=== PATIENT | female | born 1990 | race Caucasian/White ===

== ENCOUNTER → 2017-12-28 | Outpatient (CLI) | payer BC, OTHER ==
[~2017-12-28] MED LIST: ALPR-475 PO; LAMO100T5 PO; LEVO15TA6 PO; VENL37.52 PO
== END | disposition home or self-care (01) ==
LOC: STAR 08:05
PROVIDERS: ATTEND Orthopaedic Surgery
DX: Z02.9 Encounter for administrative examinations, unspecified (principal)

== ENCOUNTER 2018-01-03 05:16 | Day surgery (SDC) | payer BC, OTHER ==
[2017-12-28 08:32] VITALS: BP 109/76
[~2018-01-03] VITALS: Ht 154.9 cm; Wt 88.5 kg
[2018-01-03] MEDS ORDERED: LACTATED RINGERS 1,000 ML IV SCH (05:58)
[2018-01-03] MEDS ORDERED: LIDOCAINE-MPF 1%, 2ML INFIL ONE (06:00)
[2018-01-03 06:02] VITALS: BP 109/76
[2018-01-03] MEDS ORDERED: LIDOCAINE-MPF 1%, 5ML ONE (06:07)
[2018-01-03 06:13] LABS: HCG UR SG 1.028 (1.003-1.030)
[2018-01-03] MEDS ORDERED: MIDAZOLAM 1 MG/ML, 2ML ONE (06:18)
[2018-01-03] MEDS ORDERED: FENTANYL PF 250 MCG/5ML ONE (06:18)
[2018-01-03] MEDS ORDERED: EPINEPHRINE 1 MG/ML, 1ML ONE (06:21)
[2018-01-03] MEDS ORDERED: BUPIVACAINE/PF 0.5% ONE (06:21)
[2018-01-03] MEDS ORDERED: PROPOFOL 10 MG/ML, 20ML ONE (06:23)
[2018-01-03] MEDS ORDERED: DEXAMETHASONE 4 MG/ML, 1ML ONE ×2 (06:24)
[2018-01-03] MEDS ORDERED: ONDANSETRON 2MG/ML, 2ML ONE (06:24)
[2018-01-03] MEDS ORDERED: WATER-INJECTION,STERILE 10 ML IV ONE (06:29)
[2018-01-03] MEDS ORDERED: CEFAZOLIN 1,000 MG ONE ×2 (06:29)
[2018-01-03] MEDS ORDERED: SCOPOLAMINE PATCH, 1.5MG PATCH.TD72 TD PRN (07:00)
[2018-01-03] MEDS ORDERED: MEPERIDINE/PF 25MG/0.5ML IVPush PRN (07:00)
[2018-01-03] MEDS ORDERED: ONDANSETRON ODT 8 MG PO PRN (07:00)
[2018-01-03] MEDS ORDERED: ACETAMINOPHEN 325 MG TABLET PO PRN (07:00)
[2018-01-03] MEDS ORDERED: ONDANSETRON 2MG/ML, 2ML IV PRN (07:00)
[2018-01-03] MEDS ORDERED: PROMETHAZINE 25 MG/ML, 1ML IV PRN (07:00)
[2018-01-03] MEDS ORDERED: FENTANYL PF 100 MCG/2ML IV PRN (07:00)
[2018-01-03] MEDS ORDERED: PROMETHAZINE 25 MG SUPP PR PRN (07:00)
[2018-01-03] MEDS ORDERED: MORPHINE SULFATE 4 MG/ML, 1ML IVPush PRN (07:00)
[2018-01-03] MEDS ORDERED: PROMETHAZINE 12.5 MG SUPP PR PRN (07:00)
[2018-01-03] MEDS ORDERED: HYDROmorphone 1 MG/ML, 1ML IV PRN (07:00)
[2018-01-03] MEDS ORDERED: KETOROLAC 30 MG/1 ML ONE (07:37)
[2018-01-03] MEDS ORDERED: OXYcodone 5 MG/5 ML ORAL.SOL UDC ONE ×2 (08:08→08:58)
[2018-01-03] MEDS ORDERED: ACETAMINOPHEN 650 MG/20.3 ML UDC ONE (08:08)
[2018-01-03] MEDS ORDERED: MEPERIDINE/PF 50 MG/ML ONE (08:09)
[2018-01-03] MEDS: OXYcodone 5 MG/5 ML ORAL.SOL UDC PO PRN ×2 (08:14→08:59)
[2018-01-03] MEDS ORDERED: morphine SULFATE 10 MG/ML, 1ML IVPush PRN (09:30)
[2018-01-03] MEDS ORDERED: morphine SULFATE 10 MG/ML, 1ML ONE (09:45)
== END 2018-01-03 11:30 | disposition home or self-care (01) ==
LOC: OUT 05:16
PROVIDERS: ATTEND Orthopaedic Surgery
DX: D16.22 Benign neoplasm of long bones of left lower limb (principal); F32.9 Major depressive disorder, single episode, unspecified; Z88.1 Allergy status to other antibiotic agents; Z88.8 Allergy status to other drugs, medicaments and biological substances; Z79.899 Other long term (current) drug therapy
CPT/HCPCS: 27640; 73590; 76000; 81025; 88304; 88311; J0690; J1100; J1885; J2175; J2250; J2270; J2405; J2704; J3010; J7120; J0171; J3490

== ENCOUNTER 2018-02-03 13:13 | Day surgery (SDC) | payer OTHER ==
[~2018-02-03] VITALS: Ht 154.9 cm; Wt 88.0 kg
[~2018-02-03 13:13] MED LIST changes: +CEFAZOLIN 1,000 MG ONE; +DEXAMETHASONE 4 MG/ML, 1ML ONE; +KETOROLAC 30 MG/1 ML ONE; +ONDANSETRON 2MG/ML, 2ML ONE; +PROPOFOL 10 MG/ML, 20ML ONE
[2018-02-03] MEDS ORDERED: LACTATED RINGERS 1,000 ML IV SCH ×2 (13:40→13:52)
[2018-02-03 13:41] VITALS: BP 109/63
[2018-02-03] MEDS ORDERED: LIDOCAINE 1%-EPI 1:100K, 30ML ONE (15:24)
[2018-02-03] MEDS ORDERED: LIDOCAINE/PF 1%, 30ML ONE (15:24)
[2018-02-03 15:26] LABS: HCG UR SG 1.021 (1.003-1.030)
[2018-02-03] MEDS ORDERED: FENTANYL PF 100 MCG/2ML ONE ×2 (15:26→16:29)
[2018-02-03] MEDS ORDERED: MIDAZOLAM 1 MG/ML, 2ML ONE (15:27)
[2018-02-03] MEDS ORDERED: MEPERIDINE/PF 50 MG/ML ONE ×2 (15:53→16:31)
[2018-02-03] MEDS ORDERED: hydrALAzine 20 MG/ML, 1ML IV PRN (16:00)
[2018-02-03] MEDS ORDERED: HALOPERIDOL 5 MG/ML IV PRN (16:00)
[2018-02-03] MEDS ORDERED: HYDROmorphone 2 MG/ML, 1ML IV PRN (16:00)
[2018-02-03] MEDS ORDERED: OXYcodone 5 MG/5 ML ORAL.SOL UDC PO PRN (16:00)
[2018-02-03] MEDS ORDERED: MEPERIDINE/PF 25MG/0.5ML IVPush PRN (16:00)
[2018-02-03] MEDS ORDERED: LORazepam 2 MG/ML, 1ML IVPush PRN (16:00)
[2018-02-03] MEDS ORDERED: ACETAMINOPHEN 325 MG TABLET PO PRN (16:00)
[2018-02-03] MEDS ORDERED: FENTANYL PF 100 MCG/2ML IV PRN (16:00)
[2018-02-03] MEDS ORDERED: LABETALOL 5MG/ML, 20ML IV PRN (16:00)
[2018-02-03] MEDS ORDERED: ALBUTEROL SULFATE 2.5 MG/3 ML NPPB PRN (16:00)
[2018-02-03] MEDS ORDERED: OXYcodone 5 MG/5 ML ORAL.SOL UDC ONE (16:29)
[2018-02-03] MEDS ORDERED: ACETAMINOPHEN 650 MG/20.3 ML UDC ONE (16:34)
== END 2018-02-03 18:30 | disposition home or self-care (01) ==
LOC: OR 13:13
PROVIDERS: ATTEND Orthopaedic Surgery
DX: T81.31XA Disruption of external operation (surgical) wound, not elsewhere classified, initial encounter (principal); Y83.8 Other surgical procedures as the cause of abnormal reaction of the patient, or of later complication, without mention of misadventure at the time of the procedure; Y92.89 Other specified places as the place of occurrence of the external cause; Z88.1 Allergy status to other antibiotic agents; Z79.899 Other long term (current) drug therapy; Z87.891 Personal history of nicotine dependence; Z72.89 Other problems related to lifestyle
CPT/HCPCS: 13160; 81025; 87070; 87075; 87077; 87147; 87186; 87205; J0690; J1100; J1885; J2175; J2250; J2405; J2704; J3010; J3490; J7120

== ENCOUNTER 2018-03-28 10:58 | Inpatient (IN) | payer OTHER ==
[~2018-03-28] VITALS: Ht 154.9 cm; Wt 88.4 kg
[~2018-03-28 10:58] MED LIST changes: -CEFAZOLIN 1,000 MG ONE; -DEXAMETHASONE 4 MG/ML, 1ML ONE; -KETOROLAC 30 MG/1 ML ONE; -ONDANSETRON 2MG/ML, 2ML ONE; -PROPOFOL 10 MG/ML, 20ML ONE
[2018-03-28] MEDS ORDERED: LACTATED RINGERS 1,000 ML IV SCH (11:33)
[2018-03-28 11:38] VITALS: BP 103/73
[2018-03-28] MEDS ORDERED: CARI6CAP PO (11:38)
[2018-03-28] MEDS ORDERED: PLEASE ENTER HEIGHT AND WEIGHT MC SCH (12:00)
[2018-03-28 12:01] LABS: HCG UR SG 1.024 (1.003-1.030)
[2018-03-28] MEDS ORDERED: FENTANYL PF 100 MCG/2ML ONE (12:53)
[2018-03-28] MEDS ORDERED: MIDAZOLAM 1 MG/ML, 2ML ONE (12:55)
[2018-03-28] MEDS ORDERED: DEXAMETHASONE 4 MG/ML, 1ML ONE (13:22)
[2018-03-28] MEDS ORDERED: PROPOFOL 10 MG/ML, 20ML ONE ×3 (13:22→13:25)
[2018-03-28] MEDS ORDERED: PROPOFOL 100 ML ONE (13:23)
[2018-03-28] MEDS ORDERED: HYDROmorphone 2 MG/ML, 1ML ONE (13:56)
[2018-03-28] MEDS: HYDROmorphone 1 MG/ML, 1ML IV PRN ×3 (13:59→14:30)
[2018-03-28] MEDS ORDERED: OXYcodone 5 MG/5 ML ORAL.SOL UDC PO PRN (14:00)
[2018-03-28] MEDS ORDERED: HYDROcodone/APAP 7.5-325MG/15ML UDC PO PRN (14:00)
[2018-03-28] MEDS ORDERED: MORPHINE SULFATE 4 MG/ML, 1ML IVPush PRN (14:00)
[2018-03-28] MEDS ORDERED: morphine SULFATE 10 MG/ML, 1ML IV PRN (16:00)
[2018-03-28] MEDS ORDERED: LORazepam 2 MG/ML, 1ML IV PRN (16:00)
[2018-03-28] MEDS ORDERED: ACETAMINOPHEN 325 MG TABLET PO PRN (16:00)
[2018-03-28] MEDS ORDERED: BISACODYL 10 MG SUPP PR PRN (16:00)
[2018-03-28] MEDS ORDERED: LORazepam 1MG TABLET PO PRN (16:00)
[2018-03-28] MEDS ORDERED: HYDROcodone/APAP 5/325 TABLET PO PRN (16:00)
[2018-03-28] MEDS ORDERED: MAGNESIUM HYDROXIDE 8%, 30ML UDC PO PRN (16:00)
[2018-03-28] MEDS ORDERED: VANCOMYCIN PER PHARMACY MC PRN (16:00)
[2018-03-28] MEDS ORDERED: PROMETHAZINE 25 MG/ML, 1ML IM PRN (16:00)
[2018-03-28] MEDS ORDERED: SENNA/DOCUSATE TABLET PO PRN (16:00)
[2018-03-28] MEDS ORDERED: ALUMINUM/MAG/SIMETHICONE 30 ML UDC PO PRN (16:00)
[2018-03-28] MEDS ORDERED: PHARMACOKINETIC MONITORING MC PRN (16:30)
[2018-03-28] MEDS: OXYcodone/APAP 5/325MG TABLET PO PRN ×2 (18:10→21:53)
[2018-03-28] MEDS: D5%-LACTATED RINGERS 1,000 ML IV SCH (19:27)
[2018-03-28] MEDS: VANCOMYCIN 1,700 MG in SODIUM CHLORIDE 0.9% 250 ML IV SCH (19:32)
[2018-03-28 20:00] VITALS: BP 113/61
[2018-03-28] MEDS: CEFAZOLIN PMX 1GM/50ML 50 ML IVPB SCH (21:16)
[2018-03-28] MEDS: DOCUSATE 100 MG CAPSULE PO SCH (21:53)
[2018-03-29 00:10] VITALS: BP 97/61
[2018-03-29] MEDS: OXYcodone/APAP 5/325MG TABLET PO PRN ×3 (02:23→12:39)
[2018-03-29] MEDS: D5%-LACTATED RINGERS 1,000 ML IV SCH ×2 (04:30→15:31)
[2018-03-29] MEDS: CEFAZOLIN PMX 1GM/50ML 50 ML IVPB SCH ×3 (05:07→21:44)
[2018-03-29 05:09] LABS: BASOPHILS # (AUTO) 0.07 x10^3/uL (0-0.1); BASOPHILS % (AUTO) 1 % (0-1); EOSINOPHILS # (AUTO) 0.01 x10^3/uL (0-0.4); EOSINOPHILS % (AUTO) 0 % (1-7); HCT (SEDRATE) 42.3 % (34.6-47.8); LYMPHOCYTES # (AUTO) 1.54 x10^3/uL (1-3.4); LYMPHOCYTES % (AUTO) 14 % (22-44); MD NO; MEAN CORPUSCULAR HEMOGLOBIN 32.7 pg (27.0-34.8); MEAN CORPUSCULAR HGB CONC 34.8 g/dL (32.4-35.8); MEAN CORPUSCULAR VOLUME 94.1 fL (80-100); MEAN PLATELET VOLUME 7.6 fL (7.4-10.4); MONOCYTES # (AUTO) 0.56 x10^3/uL (0.2-0.8); MONOCYTES % (AUTO) 5 % (2-9); NEUTROPHILS # (AUTO) 8.46 x10^3/uL (1.8-6.8); NEUTROPHILS % (AUTO) 80 % (42-75); PLATELET COUNT 352 x10^3/uL (130-400); RED BLOOD COUNT 4.45 x10^6/uL (3.82-5.3); RED CELL DISTRIBUTION WIDTH 12.4 % (9.6-15.2)
[2018-03-29 05:20] LABS: ALANINE AMINOTRANSFERASE 151 U/L (12-78); ALBUMIN 3.2 g/dL (3.4-5.0); ANION GAP 7 mmol/L (5-15); C-REACTIVE PROTEIN, QUANT 0.11 mg/dL (0.02-0.49); CALCIUM 8.6 mg/dL (8.5-10.1); CHLORIDE 106 mmol/L (98-107); CREATININE 0.73 mg/dL (0.55-1.02)
[2018-03-29 05:21] VITALS: BP 95/61
[2018-03-29 05:22] LABS: ALKALINE PHOSPHATASE 75 U/L (45-117); BILIRUBIN,TOTAL 0.3 mg/dL (0.2-1.0); TOTAL PROTEIN 6.2 g/dL (6.4-8.2)
[2018-03-29 05:33] LABS: HEMOGLOBIN A1C 4.9 % (4.2-6.3)
[2018-03-29] MEDS ORDERED: ENOXAPARIN 30 MG/0.3 ML SQ ONE (06:00)
[2018-03-29 07:09] VITALS: BP 107/62
[2018-03-29] MEDS: VANCOMYCIN 1,700 MG in SODIUM CHLORIDE 0.9% 250 ML IV SCH ×2 (08:12→19:50)
[2018-03-29] MEDS: MULTIVITAMINS/MINERALS TABLET PO SCH (08:13)
[2018-03-29] MEDS: DOCUSATE 100 MG CAPSULE PO SCH ×2 (08:13→19:51)
[2018-03-29 12:37] VITALS: BP 106/61
[2018-03-29 18:57] VITALS: BP 101/69
[2018-03-29] MEDS: LAMOTRIGINE 100 MG TABLET PO SCH (19:50)
[2018-03-29] MEDS: VENLAFAXINE 37.5MG TABLET PO SCH (19:51)
[2018-03-30] MEDS: OXYcodone/APAP 5/325MG TABLET PO PRN (01:23)
[2018-03-30] MEDS: ONDANSETRON 2MG/ML, 2ML IV PRN (01:33)
[2018-03-30 03:31] VITALS: BP 100/68
[2018-03-30 05:43] LABS: HEMOGLOBIN A1C 4.7 % (4.2-6.3)
[2018-03-30] MEDS ORDERED: ENOXAPARIN 40 MG/0.4 ML SQ SCH (06:00)
[2018-03-30] MEDS: CEFAZOLIN PMX 1GM/50ML 50 ML IVPB SCH ×3 (06:26→22:55)
[2018-03-30 07:30] VITALS: BP 102/68
[2018-03-30] MEDS: VANCOMYCIN 1,700 MG in SODIUM CHLORIDE 0.9% 250 ML IV SCH ×2 (08:06→20:32)
[2018-03-30] MEDS: DOCUSATE 100 MG CAPSULE PO SCH ×2 (08:07→20:32)
[2018-03-30] MEDS: LAMOTRIGINE 100 MG TABLET PO SCH (08:07)
[2018-03-30] MEDS: VENLAFAXINE 37.5MG TABLET PO SCH (08:07)
[2018-03-30] MEDS: MULTIVITAMINS/MINERALS TABLET PO SCH (08:07)
[2018-03-30 14:49] VITALS: BP 115/71
[2018-03-30 14:50] VITALS: BP 115/71
[2018-03-30] MEDS: D5%-LACTATED RINGERS 1,000 ML IV SCH (16:00)
[2018-03-30] MEDS ORDERED: PROPOFOL 50 ML ONE (16:49)
[2018-03-30] MEDS ORDERED: MIDAZOLAM 1 MG/ML, 2ML ONE (16:49)
[2018-03-30] MEDS ORDERED: FENTANYL PF 100 MCG/2ML ONE ×2 (16:50→17:56)
[2018-03-30] MEDS ORDERED: ONDANSETRON 2MG/ML, 2ML ONE (17:09)
[2018-03-30] MEDS ORDERED: PROPOFOL 10 MG/ML, 20ML ONE (17:09)
[2018-03-30] MEDS ORDERED: PROPOFOL 10 MG/ML, 50ML ONE (17:09)
[2018-03-30] MEDS ORDERED: OXYcodone 5 MG/5 ML ORAL.SOL UDC ONE (17:56)
[2018-03-30] MEDS ORDERED: ONDANSETRON 2MG/ML, 2ML IV PRN (18:00)
[2018-03-30] MEDS: FENTANYL PF 100 MCG/2ML IV PRN ×2 (18:00→18:06)
[2018-03-30] MEDS ORDERED: LABETALOL 5MG/ML, 20ML IV PRN (18:00)
[2018-03-30] MEDS ORDERED: OXYcodone 5 MG/5 ML ORAL.SOL UDC PO PRN (18:00)
[2018-03-30] MEDS ORDERED: hydrALAzine 20 MG/ML, 1ML IV PRN (18:00)
[2018-03-30] MEDS ORDERED: DIPHENHYDRAMINE 50 MG/ML, 1ML IVPush PRN (18:00)
[2018-03-30] MEDS ORDERED: HYDROmorphone 2 MG/ML, 1ML ONE (18:02)
[2018-03-30] MEDS: HYDROmorphone 1 MG/ML, 1ML IV PRN ×2 (18:04→18:15)
[2018-03-30 18:51] VITALS: BP 104/68
[2018-03-31 00:41] VITALS: BP 93/69
[2018-03-31 05:17] VITALS: BP 100/65
[2018-03-31] MEDS: ENOXAPARIN 40 MG/0.4 ML SQ SCH (06:46)
[2018-03-31] MEDS: CEFAZOLIN PMX 1GM/50ML 50 ML IVPB SCH (06:46)
[2018-03-31] MEDS: ONDANSETRON 2MG/ML, 2ML IV PRN (07:56)
[2018-03-31 08:24] VITALS: BP 103/63
[2018-03-31] MEDS: DOCUSATE 100 MG CAPSULE PO SCH ×2 (08:48→21:24)
[2018-03-31] MEDS: MULTIVITAMINS/MINERALS TABLET PO SCH (08:49)
[2018-03-31] MEDS: VENLAFAXINE 37.5MG TABLET PO SCH (08:49)
[2018-03-31] MEDS: LAMOTRIGINE 100 MG TABLET PO SCH (08:49)
[2018-03-31] MEDS: VANCOMYCIN 1,700 MG in SODIUM CHLORIDE 0.9% 250 ML IV SCH (08:51)
[2018-03-31] MEDS: D5%-LACTATED RINGERS 1,000 ML IV SCH ×2 (08:51→21:24)
[2018-03-31 13:00] VITALS: BP 104/66
[2018-03-31] MEDS: CEFAZOLIN PMX 2GM/50ML 50 ML IVPB SCH ×2 (14:09→21:24)
[2018-03-31] MEDS: OXYcodone/APAP 5/325MG TABLET PO PRN ×2 (14:33→21:24)
[2018-03-31 18:46] VITALS: BP 97/67
[2018-04-01] MEDS ORDERED: VANCOMYCIN 1,800 MG in SODIUM CHLORIDE 0.9% 250 ML IV SCH (03:00)
[2018-04-01 03:05] VITALS: BP 101/67
[2018-04-01] MEDS: ENOXAPARIN 40 MG/0.4 ML SQ SCH (06:03)
[2018-04-01] MEDS: CEFAZOLIN PMX 2GM/50ML 50 ML IVPB SCH ×3 (06:03→21:39)
[2018-04-01 07:27] VITALS: BP 103/61
[2018-04-01] MEDS: VENLAFAXINE 37.5MG TABLET PO SCH (08:16)
[2018-04-01] MEDS: MULTIVITAMINS/MINERALS TABLET PO SCH (08:17)
[2018-04-01] MEDS: LAMOTRIGINE 100 MG TABLET PO SCH (08:17)
[2018-04-01] MEDS: DOCUSATE 100 MG CAPSULE PO SCH ×2 (08:17→21:38)
[2018-04-01] MEDS: ONDANSETRON 2MG/ML, 2ML IV PRN (11:19)
[2018-04-01] MEDS: OXYcodone/APAP 5/325MG TABLET PO PRN (13:03)
[2018-04-01 14:30] VITALS: BP 104/70
[2018-04-01 19:43] VITALS: BP 97/62
[2018-04-01] MEDS: D5%-LACTATED RINGERS 1,000 ML IV SCH (21:00)
[2018-04-02 01:58] VITALS: BP 90/48
[2018-04-02] MEDS: CEFAZOLIN PMX 2GM/50ML 50 ML IVPB SCH (05:56)
[2018-04-02] MEDS: ENOXAPARIN 40 MG/0.4 ML SQ SCH (05:56)
[2018-04-02 09:00] VITALS: BP 105/67
[2018-04-02] MEDS: LAMOTRIGINE 100 MG TABLET PO SCH (09:20)
[2018-04-02] MEDS: VENLAFAXINE 37.5MG TABLET PO SCH (09:20)
[2018-04-02] MEDS: MULTIVITAMINS/MINERALS TABLET PO SCH (09:20)
[2018-04-02] MEDS: DOCUSATE 100 MG CAPSULE PO SCH ×2 (09:20→20:47)
[2018-04-02] MEDS: D5%-LACTATED RINGERS 1,000 ML IV SCH ×2 (09:20→20:49)
[2018-04-02] MEDS ORDERED: ERTAPENEM 1 GM in SODIUM CHLORIDE 0.9% 50 ML IV SCH (10:30)
[2018-04-02 15:31] VITALS: BP 109/70
[2018-04-02 20:00] VITALS: BP 100/69
[2018-04-03 00:24] VITALS: BP 97/64
[2018-04-03 04:52] LABS: BASOPHILS # (AUTO) 0.07 x10^3/uL (0-0.1); BASOPHILS % (AUTO) 1 % (0-1); EOSINOPHILS # (AUTO) 0.27 x10^3/uL (0-0.4); EOSINOPHILS % (AUTO) 4 % (1-7); HCT (SEDRATE) 43.1 % (34.6-47.8); LYMPHOCYTES # (AUTO) 2.03 x10^3/uL (1-3.4); LYMPHOCYTES % (AUTO) 30 % (22-44); MD NO; MEAN CORPUSCULAR HGB CONC 35.1 g/dL (32.4-35.8); MEAN CORPUSCULAR VOLUME 93.8 fL (80-100); MEAN PLATELET VOLUME 7.4 fL (7.4-10.4); MONOCYTES # (AUTO) 0.45 x10^3/uL (0.2-0.8); MONOCYTES % (AUTO) 7 % (2-9); NEUTROPHILS # (AUTO) 3.94 x10^3/uL (1.8-6.8); NEUTROPHILS % (AUTO) 58 % (42-75); PLATELET COUNT 280 x10^3/uL (130-400); RED BLOOD COUNT 4.64 x10^6/uL (3.82-5.3); RED CELL DISTRIBUTION WIDTH 12.6 % (9.6-15.2)
[2018-04-03 05:03] LABS: CHLORIDE 107 mmol/L (98-107)
[2018-04-03 05:10] LABS: ALANINE AMINOTRANSFERASE 278 U/L (12-78); ALBUMIN 3.4 g/dL (3.4-5.0); ALKALINE PHOSPHATASE 73 U/L (45-117); ANION GAP 5 mmol/L (5-15); BILIRUBIN,TOTAL 0.6 mg/dL (0.2-1.0); C-REACTIVE PROTEIN, QUANT 0.18 mg/dL (0.02-0.49)
[2018-04-03] MEDS: ENOXAPARIN 40 MG/0.4 ML SQ SCH (05:22)
[2018-04-03 07:24] VITALS: BP 98/65
[2018-04-03] MEDS: MULTIVITAMINS/MINERALS TABLET PO SCH (08:42)
[2018-04-03] MEDS: LAMOTRIGINE 100 MG TABLET PO SCH (08:42)
[2018-04-03] MEDS: D5%-LACTATED RINGERS 1,000 ML IV SCH ×2 (08:42→20:53)
[2018-04-03] MEDS: VENLAFAXINE 37.5MG TABLET PO SCH (08:42)
[2018-04-03] MEDS: DOCUSATE 100 MG CAPSULE PO SCH ×2 (08:42→20:23)
[2018-04-03] MEDS: DAPTOMYCIN 550 MG in SODIUM CHLORIDE 0.9% 100 ML IVPB SCH (11:51)
[2018-04-03] MEDS: OXYcodone/APAP 5/325MG TABLET PO PRN (13:14)
[2018-04-03 14:04] VITALS: BP 103/71
[2018-04-03 22:10] VITALS: BP 91/55
[2018-04-04 02:31] VITALS: BP 91/57
[2018-04-04] MEDS: ENOXAPARIN 40 MG/0.4 ML SQ SCH (05:34)
[2018-04-04 06:03] LABS: ALBUMIN 3.4 g/dL (3.4-5.0); ANION GAP 3 mmol/L (5-15); CALCIUM 9.4 mg/dL (8.5-10.1); CHLORIDE 108 mmol/L (98-107)
[2018-04-04 06:07] LABS: ALANINE AMINOTRANSFERASE 257 U/L (12-78); ALKALINE PHOSPHATASE 75 U/L (45-117); BILIRUBIN,TOTAL 0.6 mg/dL (0.2-1.0); CREATININE 0.73 mg/dL (0.55-1.02); TOTAL PROTEIN 6.8 g/dL (6.4-8.2)
[2018-04-04 07:02] VITALS: BP 99/64
[2018-04-04] MEDS: LAMOTRIGINE 100 MG TABLET PO SCH (08:15)
[2018-04-04] MEDS: MULTIVITAMINS/MINERALS TABLET PO SCH (08:16)
[2018-04-04] MEDS: VENLAFAXINE 37.5MG TABLET PO SCH (08:16)
[2018-04-04] MEDS: DOCUSATE 100 MG CAPSULE PO SCH (08:16)
[2018-04-04] MEDS: D5%-LACTATED RINGERS 1,000 ML IV SCH (11:30)
[2018-04-04] MEDS: DAPTOMYCIN 550 MG in SODIUM CHLORIDE 0.9% 100 ML IVPB SCH (11:43)
[2018-04-04 12:58] VITALS: BP 102/68
[2018-04-04] MEDS ORDERED: ONDA4TAB7 PO (15:31)
[2018-04-04] MEDS ORDERED: OXYC5CAP2 PO (15:31)
[2018-04-04] MEDS ORDERED: ASPI-650 PO (15:32)
== END 2018-04-04 15:43 | disposition home or self-care (01) | DRG 857 ==
LOC: ORIP 10:58 → EDSTATUS 13:00 → 4NOR 15:28 → DCLOUNGE 04-04 15:27
PROVIDERS: ADMIT Orthopaedic Surgery; ATTEND Orthopaedic Surgery
PROC: 0JDP0ZZ Extraction of Left Lower Leg Subcutaneous Tissue and Fascia, Open Approach (ICD-10-PCS; principal; 2018-03-28 13:00)
PROC: 0JDP0ZZ Extraction of Left Lower Leg Subcutaneous Tissue and Fascia, Open Approach (ICD-10-PCS; 2018-03-30)
PROC: 02HV33Z Insertion of Infusion Device into Superior Vena Cava, Percutaneous Approach (ICD-10-PCS; 2018-04-01)
PROC: B5181ZA Fluoroscopy of Superior Vena Cava using Low Osmolar Contrast, Guidance (ICD-10-PCS; 2018-04-01)
PROC: B548ZZA Ultrasonography of Superior Vena Cava, Guidance (ICD-10-PCS; 2018-04-01)
DX: T81.41XA Infection following a procedure, superficial incisional surgical site, initial encounter (principal); T81.31XA Disruption of external operation (surgical) wound, not elsewhere classified, initial encounter; D16.22 Benign neoplasm of long bones of left lower limb; F31.9 Bipolar disorder, unspecified; Z83.3 Family history of diabetes mellitus; Z88.0 Allergy status to penicillin; Y83.8 Other surgical procedures as the cause of abnormal reaction of the patient, or of later complication, without mention of misadventure at the time of the procedure; Y92.89 Other specified places as the place of occurrence of the external cause; L27.0 Generalized skin eruption due to drugs and medicaments taken internally; T36.8X5A Adverse effect of other systemic antibiotics, initial encounter; K76.89 Other specified diseases of liver; B95.4 Other streptococcus as the cause of diseases classified elsewhere; B95.61 Methicillin susceptible Staphylococcus aureus infection as the cause of diseases classified elsewhere; Z90.49 Acquired absence of other specified parts of digestive tract
CPT/HCPCS: 36415; 77001; J7121; 36569; 76937; 80053; 80202; 81025; 82550; 83036; 85025; 85651; 86140; 87015; 87070; 87075; 87102; 87116; 87205; 87206; G0378; J0690; J0878; J1100; J1170; J1335; J1650; J2250; J2405; J2704; J3010; J3370; C1751; J7050; J7120

== ENCOUNTER 2018-04-05 14:34 | Outpatient (CLI) | payer OTHER ==
[~2018-04-05 14:34] MED LIST changes: +ASPI-650 PO; +CARI6CAP PO; +ONDA4TAB7 PO; +OXYC5CAP2 PO
== END 2018-04-17 12:59 | disposition home or self-care (01) ==
LOC: WOUND 14:34
PROVIDERS: ATTEND Internal Medicine
DX: T81.31XA Disruption of external operation (surgical) wound, not elsewhere classified, initial encounter (principal); L97.822 Non-pressure chronic ulcer of other part of left lower leg with fat layer exposed; Z90.49 Acquired absence of other specified parts of digestive tract; F31.9 Bipolar disorder, unspecified; Z88.0 Allergy status to penicillin; Y83.8 Other surgical procedures as the cause of abnormal reaction of the patient, or of later complication, without mention of misadventure at the time of the procedure; Y92.89 Other specified places as the place of occurrence of the external cause
CPT/HCPCS: 97605; 99215

== ENCOUNTER 2018-04-10 11:00 | Outpatient (CLI) | payer OTHER | END 2018-04-17 13:54 | disposition home or self-care (01) | LOC: WOUND 11:00 | PROVIDERS: ATTEND Internal Medicine | DX: T81.32XD Disruption of internal operation (surgical) wound, not elsewhere classified, subsequent encounter (principal); F31.9 Bipolar disorder, unspecified; Z90.49 Acquired absence of other specified parts of digestive tract; Y83.8 Other surgical procedures as the cause of abnormal reaction of the patient, or of later complication, without mention of misadventure at the time of the procedure | CPT/HCPCS: 97605 ==

== ENCOUNTER → 2018-04-12 | Outpatient (CLI) | payer OTHER | END | disposition home or self-care (01) | LOC: WOUND 10:25 | PROVIDERS: ATTEND Internal Medicine | DX: T81.31XD Disruption of external operation (surgical) wound, not elsewhere classified, subsequent encounter (principal); F31.9 Bipolar disorder, unspecified; B95.61 Methicillin susceptible Staphylococcus aureus infection as the cause of diseases classified elsewhere; B95.5 Unspecified streptococcus as the cause of diseases classified elsewhere; Z90.49 Acquired absence of other specified parts of digestive tract; Y83.8 Other surgical procedures as the cause of abnormal reaction of the patient, or of later complication, without mention of misadventure at the time of the procedure | CPT/HCPCS: 97597 ==

== ENCOUNTER → 2018-04-14 | Outpatient (CLI) | payer OTHER | END | disposition home or self-care (01) | LOC: WOUND 10:00 | PROVIDERS: ATTEND Family Medicine | DX: T81.31XD Disruption of external operation (surgical) wound, not elsewhere classified, subsequent encounter (principal); F31.9 Bipolar disorder, unspecified; B95.61 Methicillin susceptible Staphylococcus aureus infection as the cause of diseases classified elsewhere; B95.5 Unspecified streptococcus as the cause of diseases classified elsewhere; Z90.49 Acquired absence of other specified parts of digestive tract; Z88.0 Allergy status to penicillin; Y83.8 Other surgical procedures as the cause of abnormal reaction of the patient, or of later complication, without mention of misadventure at the time of the procedure | CPT/HCPCS: 97605 ==

== ENCOUNTER → 2018-04-17 | Outpatient (CLI) | payer OTHER | END | disposition home or self-care (01) | LOC: WOUND 10:58 | PROVIDERS: ATTEND Internal Medicine | DX: T81.31XD Disruption of external operation (surgical) wound, not elsewhere classified, subsequent encounter (principal); B95.61 Methicillin susceptible Staphylococcus aureus infection as the cause of diseases classified elsewhere; B95.5 Unspecified streptococcus as the cause of diseases classified elsewhere; F31.9 Bipolar disorder, unspecified; Z87.891 Personal history of nicotine dependence; Z90.49 Acquired absence of other specified parts of digestive tract; Y83.8 Other surgical procedures as the cause of abnormal reaction of the patient, or of later complication, without mention of misadventure at the time of the procedure | CPT/HCPCS: 97605 ==

== ENCOUNTER → 2018-04-19 | Outpatient (CLI) | payer OTHER | END | disposition home or self-care (01) | LOC: WOUND 11:00 | PROVIDERS: ATTEND Internal Medicine | DX: T81.31XD Disruption of external operation (surgical) wound, not elsewhere classified, subsequent encounter (principal); B95.61 Methicillin susceptible Staphylococcus aureus infection as the cause of diseases classified elsewhere; F31.9 Bipolar disorder, unspecified; Z90.49 Acquired absence of other specified parts of digestive tract; Z87.891 Personal history of nicotine dependence; Z85.830 Personal history of malignant neoplasm of bone; Y83.8 Other surgical procedures as the cause of abnormal reaction of the patient, or of later complication, without mention of misadventure at the time of the procedure | CPT/HCPCS: 97597 ==

== ENCOUNTER → 2018-04-21 | Outpatient (CLI) | payer OTHER | END | disposition home or self-care (01) | LOC: WOUND 08:06 | PROVIDERS: ATTEND Family Medicine | DX: T81.31XD Disruption of external operation (surgical) wound, not elsewhere classified, subsequent encounter (principal); F31.9 Bipolar disorder, unspecified; B95.61 Methicillin susceptible Staphylococcus aureus infection as the cause of diseases classified elsewhere; Z90.49 Acquired absence of other specified parts of digestive tract; Z85.830 Personal history of malignant neoplasm of bone; Z87.891 Personal history of nicotine dependence; Y83.8 Other surgical procedures as the cause of abnormal reaction of the patient, or of later complication, without mention of misadventure at the time of the procedure | CPT/HCPCS: 97605 ==

== ENCOUNTER → 2018-04-24 | Outpatient (CLI) | payer OTHER | END | disposition home or self-care (01) | LOC: WOUND 11:05 | PROVIDERS: ATTEND Internal Medicine | DX: T81.31XD Disruption of external operation (surgical) wound, not elsewhere classified, subsequent encounter (principal); B95.61 Methicillin susceptible Staphylococcus aureus infection as the cause of diseases classified elsewhere; B95.5 Unspecified streptococcus as the cause of diseases classified elsewhere; F31.9 Bipolar disorder, unspecified; Z85.830 Personal history of malignant neoplasm of bone; Z87.891 Personal history of nicotine dependence; Z90.49 Acquired absence of other specified parts of digestive tract; Z88.0 Allergy status to penicillin; Y83.8 Other surgical procedures as the cause of abnormal reaction of the patient, or of later complication, without mention of misadventure at the time of the procedure | CPT/HCPCS: 99214 ==

== ENCOUNTER → 2018-05-01 | Outpatient (CLI) | payer OTHER | END | disposition home or self-care (01) | LOC: WOUND 10:41 | PROVIDERS: ATTEND Internal Medicine | DX: T81.31XD Disruption of external operation (surgical) wound, not elsewhere classified, subsequent encounter (principal); B95.61 Methicillin susceptible Staphylococcus aureus infection as the cause of diseases classified elsewhere; B95.5 Unspecified streptococcus as the cause of diseases classified elsewhere; F31.9 Bipolar disorder, unspecified; Z85.830 Personal history of malignant neoplasm of bone; Z87.891 Personal history of nicotine dependence; Z90.49 Acquired absence of other specified parts of digestive tract; Z88.0 Allergy status to penicillin; Y83.8 Other surgical procedures as the cause of abnormal reaction of the patient, or of later complication, without mention of misadventure at the time of the procedure | CPT/HCPCS: 97597 ==

== ENCOUNTER → 2018-05-15 | Outpatient (CLI) | payer OTHER | END | disposition home or self-care (01) | LOC: WOUND 09:57 | PROVIDERS: ATTEND Internal Medicine | DX: T81.31XD Disruption of external operation (surgical) wound, not elsewhere classified, subsequent encounter (principal); B95.61 Methicillin susceptible Staphylococcus aureus infection as the cause of diseases classified elsewhere; B95.5 Unspecified streptococcus as the cause of diseases classified elsewhere; F31.9 Bipolar disorder, unspecified; Z85.830 Personal history of malignant neoplasm of bone; Z87.891 Personal history of nicotine dependence; Z90.49 Acquired absence of other specified parts of digestive tract; Z88.0 Allergy status to penicillin; Y83.8 Other surgical procedures as the cause of abnormal reaction of the patient, or of later complication, without mention of misadventure at the time of the procedure | CPT/HCPCS: 17250 ==

== ENCOUNTER 2018-05-24 09:42 | Outpatient (CLI) | payer OTHER | END 2018-05-24 23:59 | disposition home or self-care (01) | LOC: WOUND 09:42 | PROVIDERS: ATTEND Internal Medicine | DX: T81.31XD Disruption of external operation (surgical) wound, not elsewhere classified, subsequent encounter (principal); A49.01 Methicillin susceptible Staphylococcus aureus infection, unspecified site; F31.9 Bipolar disorder, unspecified; Z90.49 Acquired absence of other specified parts of digestive tract; Z85.830 Personal history of malignant neoplasm of bone; Z87.891 Personal history of nicotine dependence | CPT/HCPCS: 99213 ==